=== PATIENT | female | born 1995 | race Caucasian/White ===

== ENCOUNTER 2017-01-31 20:13 | Emergency (ER) | payer BC, OTHER ==
[~2017-01-31] VITALS: Ht 157.4 cm; Wt 95.3 kg
[2017-01-31] MEDS ORDERED: ZITHROMAX250 MG PO (22:40)
[2017-01-31] MEDS ORDERED: KETOROLAC10 MG PO (22:40)
== END 2017-01-31 23:22 | disposition home or self-care (01) ==
LOC: ED 20:13
DX: J40 Bronchitis, not specified as acute or chronic (principal); R09.1 Pleurisy